=== PATIENT | male | born 1985 | race American Indian/Alaskan Native ===

== ENCOUNTER 2018-08-27 22:44 | Emergency (ER) | payer OTHER ==
[2018-08-27] MEDS ORDERED: NACL 0.9% 1000 ML 1,000 ML IV ONE (23:02)
[2018-08-27 23:20] LABS: Hemoglobin 14.5 gm/dl (11.8-15.2); Mean Corpuscular HGB Conc 33 % (32-34); Mean Corpuscular Volume 87 fl (84-94); Platelet Count 214 K/mm3 (140-440); Red Blood Count 5.05 M/mm3 (3.65-5.03); Red Cell Distribution Width 12.9 % (13.2-15.2)
[2018-08-27] MEDS ORDERED: DILAUDID IV ONE (23:20)
[2018-08-27 23:23] LABS: Bilirubin,Urine NEG (Negative); Blood,Urine NEG (Negative); Color,Urine Yellow (Yellow); Mucus,Urine FEW /HPF; Protein,Urine <15 mg/dL mg/dL (Negative); Urobilinogen,Urine < 2.0 mg/dL (<2.0)
[2018-08-27] MEDS ORDERED: ZOSYN/NS 4.5GM/100ML 4.5 GM/100 ML VIAL IV ONE (23:32)
[2018-08-27 23:36] LABS: Alanine Aminotransferase 12 units/L (7-56); Albumin 4.3 g/dL (3.9-5); BUN/Creatinine Ratio 11; Blood Urea Nitrogen 9 mg/dL (9-20); Calcium 9.3 mg/dL (8.4-10.2); Hemolysis Index 10
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
[2018-08-28 00:09] LABS: Band Neutrophils # (Manual) 0.5 K/mm3; Basophils % (Manual) 0 % (0.0-1.8); Eosinophils % (Manual) 0 % (0.0-4.3); RBC Morphology Normal; Total Cells Counted 100
--- NOTE | 2018-08-28 00:43 | Cat Scan Report ---
FINAL REPORT EXAM: CT ABDOMEN PELVIS WO CON HISTORY: Right lower quadrant pain, history of ex lap and kidney stone. TECHNIQUE: CT evaluation performed of the abdomen and pelvis without IV or oral contrast administrat ion. Coronal and sagittal imaging also provided for interpretation. The examination is significantly limited secondary to absence of intraperitoneal fat and reconstruction algorithm of the sagittal and coronal images. PRIORS: None. FINDINGS: Lower thorax: Mild bibasilar atelectasis. The visualized portions of the heart are normal. Liver: Numerous surgical clips are noted at the anterior and inferior margin of the right liver and l ikely within the anterior right hepatic parenchyma. There is no patent calcification or adjacent infl ammatory change. Gallbladder/ biliary system: Probable punctate dependent gallstones. No perihepatic inflammatory irizarry ge. Spleen: No splenic lesions are seen. Pancreas: No calcification or duct dilatation. Kidneys: No kidney lesions identified. No hydronephrosis. Adrenal glands: No adrenal masses. Vasculature: Mild aortoiliac atherosclerotic vascular calcifications. Lymph nodes: Evaluation limited. Bowel, mesentery, peritoneum: No bowel obstruction. No free intra-abdominal fluid or air.Large volume formed colonic stool. Urinary bladder: No calculi or wall thickening. Abdominal wall: Multiple soft tissue nodules in the anterior abdomen. Correlation wtih exam requested . Bones: No acute osseous abnormality. Chronic probable posttraumatic remodeling of the right lateral 6 th and 7th ribs. IMPRESSION: 1. Limited examination given non-contrast technique, suboptimal reconstructions and limited intra abd ominal fat content. 2. Large volume colonic stool, no bowel obstruction or definite right lower quadrant inflammatory ingrid nge. 3. No hydroureteronephrosis or identified renal/ureteral calcification. 4. Post-surgical changes of the liver and several ventral abdominal soft tissue nodular lesions which may represent masses or scarring. Correlation with exam requested.
[2018-08-28] MEDS ORDERED: DILAUDID IV ONE (01:37)
[2018-08-28] MEDS ORDERED: NACL 0.9% 1000 ML 1,000 ML IV ONE (01:38)
[2018-08-28 04:14] VITALS: BP 97/41
--- NOTE | 2018-08-28 04:56 | Cat Scan Report ---
FINAL REPORT EXAM: CT ABDOMEN PELVIS W CON HISTORY: rlq pain, wbc 24, hx of ex lap, liver lac TECHNIQUE: CT images are acquired through the Abdomen and Pelvis following intravenous administratio n of contrast and after ingestion of positive enteric contrast. Transaxial, coronal and sagittal refo rmations are provided. PRIORS: 08/27/2018 FINDINGS: Partially visualized intrathoracic contents are unremarkable. Surgical clips in and adjacent to the right hepatic lobe. Subcentimeter cholelithiasis without surrou nding inflammatory findings. The pancreas, spleen, and adrenal glands are unremarkable. Kidneys show no worrisome lesions, hydronephrosis, or calculi. Urinary bladder is unremarkable. Small and large bowel are normal in caliber. Positive enteric contrast is seen as far distally as the transverse colon. Appendix is normal. No free air, free fluid, or lymphadenopathy identified. Aorta is normal in course and caliber. Superficial soft tissues are remarkable for soft tissue nodularity associated with a midline laparoto my scar. No acute or aggressive appearing skeletal findings. IMPRESSION: No acute findings in the abdomen or pelvis. Postsurgical sequela involving the liver and anterior abdominal wall. Subcentimeter cholelithiasis.
== END 2018-08-28 06:03 | disposition home or self-care (01) ==
LOC: ED 22:44
DX: D72.829 Elevated white blood cell count, unspecified (principal); R10.31 Right lower quadrant pain; R11.2 Nausea with vomiting, unspecified; F17.200 Nicotine dependence, unspecified, uncomplicated; Z88.6 Allergy status to analgesic agent; Z88.4 Allergy status to anesthetic agent
CPT/HCPCS: 36415; 74176; 74177; 80053; 81001; 83690; 85007; 85025; 96365; 96366; 96375; 96376; 99284; J1170; J2543; J7030; Q9967